=== PATIENT | female | born 1950 | race Caucasian/White ===

== ENCOUNTER → 2019-08-25 | Outpatient (CLI) | payer MEDICARE, BC ==
[~2019-08-25] MED LIST: ACET325T21 PO; ASPI81TA59 PO; ATOR40TA59 PO; CARV6.25 PO; CETI10TA74 PO; FLUT16SP21 NS; HYDR-2869 PO; LETR2.5T2 PO; LIDO700A21 TP; LISI-334 PO; MULT-245 PO
== END | disposition home or self-care (01) ==
LOC: LAB 14:05
PROVIDERS: ATTEND Registered Nurse
DX: Z11.59 Encounter for screening for other viral diseases (principal)
CPT/HCPCS: U0003-CS

== ENCOUNTER → 2019-08-29 | Day surgery (SDC) | payer MEDICARE, BC ==
[~2019-08-29] MED LIST changes: +CETI10TA24 PO; -CETI10TA74 PO; +IV RINGERS SOLUTION,LACTATED 1,000 ML IV SCH; +ONDANSETRON PF 4 MG/2 ML VIAL. IV PRN; +PROPOFOL 10,000 MCG/ML (20ML) VIAL IV ONE
[2019-08-29 10:27] VITALS: BP 154/81
--- NOTE | 2019-08-30 15:09 | PATHOLOGY ---
[facility] Accession Number: [id number] . 01 Material submitted: . PART A: cecum - CECAL POLYP PART B: colon - SIGMOID POLYP. Modifiers: sigmoid . 01 Clinical history: . None provided . 02 Diagnosis: A. Colon biopsies, cecal polyp: - Sessile serrated polyp/adenoma. . B. Colon biopsies, sigmoid polyp: - Hyperplastic polyp. (JPM:nadine; 08/30/2019) S 08/30/2019 0904 Local . 02 Comment: There is no high grade dysplasia or evidence of malignancy. (JPM:nadine; 08/30/2019) . 02 Electronically signed: . Jevon Lujan MD, Pathologist NPI- [id number] . 01 Gross description: . A. The specimen is received in formalin, labeled "Christiane Walker, cecum polyp". Received are multiple (greater than 10) segments of pale [place] soft tissue ranging in size from 0.2 to 0.8 cm in maximum dimensions. The specimen is submitted entirely in cassette A1 and A2. . B. The specimen is received in formalin, labeled "Christiane Walker, sigmoid polyp". Received is a segment of pale [place] soft tissue measuring 0.3 cm in maximum dimensions. The specimen is submitted entirely in cassette B1. ([facility]; 08/29/2019) QA/QAC 08/29/2019 1742 Local . 02 Pathologist provided ICD-10: D12.0, K63.5 . 02 CPT . 070205, 497903 Specimen Comment: A courtesy copy of this report has been sent to [phone], [phone] Specimen Comment: [id number] Specimen Comment: Report sent to / DR FRANCISCO JAVIER Performed at: [address] [facility], [place], [place] [id number] MD Demetrius Massey MD Phone: [phone] Performed at: [address] [id number] MD Jevon Lujan MD Phone: [phone]
== END | disposition home or self-care (01) ==
LOC: SURG 08:34
PROVIDERS: ATTEND Emergency Medicine
DX: Z09 Encounter for follow-up examination after completed treatment for conditions other than malignant neoplasm (principal); D12.0 Benign neoplasm of cecum; Z86.010 Personal history of colon polyps; Z88.2 Allergy status to sulfonamides; Z88.8 Allergy status to other drugs, medicaments and biological substances; Z79.82 Long term (current) use of aspirin; Z79.899 Other long term (current) drug therapy
CPT/HCPCS: 45385; 88305; J2704; J7120